=== PATIENT | female | born 1960 | race Caucasian/White ===

== ENCOUNTER 2018-05-02 14:17 | Outpatient (CLI) | payer BC ==
[2018-05-02 14:33] LABS: HGB - HEMOGLOBIN 13.5 g/dL (12.0-16.0); MEAN CORPUSCULAR HEMOGLOBIN 32.2 pg (27.0-31.0); MEAN CORPUSCULAR HGB CONC 34.6 g/dL (32.0-36.0); MEAN CORPUSCULAR VOLUME 93.1 fL (81.0-99.0); MEAN PLATELET VOLUME 8.8 fL (7.9-10.8); RED BLOOD COUNT 4.21 10^6/uL (4.20-5.40); RED CELL DISTRIBUTION WIDTH 14.1 % (12.0-15.0); WHITE BLOOD COUNT 6.2 x10^3/uL (4.8-10.8)
[2018-05-02 15:02] LABS: CALCIUM 9.3 mg/dL (8.5-10.3); CREATININE 1.5 mg/dL (0.4-1.0)
[2018-05-02 15:11] LABS: CREATININE,URINE 62.5 mg/dL
[2018-05-02 15:13] LABS: TOTAL PROTEIN,URINE TIMED < 6 mg/dL
== END 2018-05-02 14:18 | disposition home or self-care (01) ==
LOC: LAB 14:17
PROVIDERS: ATTEND Internal Medicine Nephrology
DX: N05.9 Unspecified nephritic syndrome with unspecified morphologic changes (principal); D70.9 Neutropenia, unspecified; D63.1 Anemia in chronic kidney disease; R80.9 Proteinuria, unspecified
CPT/HCPCS: 36415; 80048; 82570; 84156; 85027

== ENCOUNTER 2018-06-02 17:36 | Outpatient (CLI) | payer BC ==
--- NOTE | 2018-06-05 11:23 | Ultrasound Report ---
Reason: STAGE 3 KIDNEY DISEASE Procedure Date: 06/02/2018 Accession Number: [id number] / [id number] Procedure: US - Retroperitoneal CPT Code: FULL RESULT: EXAM: RENAL ULTRASOUND EXAM DATE: 06/02/2018 06:21 PM. CLINICAL HISTORY: Stage 3 kidney disease. COMPARISON: None. TECHNIQUE: Real-time scanning was performed with static images obtained. FINDINGS: Right Kidney: 8.5 cm. Decreased cortical thickness and increased echogenicity with no stones, contour-deforming masses, or hydronephrosis. Left Kidney: 10.1 cm. Decreased cortical thickness and increased echogenicity with no stones, contour-deforming masses, or hydronephrosis. Bladder: Bilateral jets seen. The prevoid bladder volume was 408 cc. The postvoid bladder volume was 26 cc. Other: None. IMPRESSION: Decreased cortical thickness and increased cortical echogenicity are compatible with medical renal disease. No obstruction. RADIA
== END 2018-06-02 17:37 | disposition home or self-care (01) ==
LOC: DI 17:36
PROVIDERS: ATTEND Internal Medicine Nephrology
DX: N18.3 Chronic kidney disease, stage 3 (moderate) (principal)
CPT/HCPCS: 76770

== ENCOUNTER 2018-10-05 22:54 | Emergency (ER) | payer BC ==
[2018-10-05 23:03] VITALS: BP 139/96
[2018-10-05 23:20] LABS: BILIRUBIN,URINE NEGATIVE (NEGATIVE); GLUCOSE, URINE (UA) NEGATIVE (NEGATIVE); KETONES,URINE (UA) NEGATIVE (NEGATIVE); LEUKOCYTE ESTERASE, URINE SMALL (NEGATIVE); NITRITE,URINE NEGATIVE (NEGATIVE); OCCULT BLOOD,URINE LARGE (NEGATIVE); PROTEIN,URINE 100 mg/dL (NEGATIVE); UROBILINOGEN,URINE 0.2 (NORMAL) E.U./dL (NORMAL)
[2018-10-05 23:24] LABS: CLARITY,URINE HAZY (CLEAR)
[2018-10-05 23:30] LABS: BACTERIA,URINE Rare /HPF (None Seen); RBC,URINE TNTC /HPF (0-5); SQUAMOUS EPITHELIAL CELL,UR FEW Squamous (<= Few)
--- NOTE | 2018-10-06 00:01 | ED Physician Documentation ---
PD HPI FEMALE - Stated complaint Stated Complaint: ABD PX/BK BX - Chief complaint Chief Complaint: UTI - History obtained from History obtained from: Patient - History of Present Illness Timing - onset: Enter time (11:00), Today Timing - details: Gradual onset Associated symptoms: Back pain, Dysuria, Urinary frequency. No: Fever Contributing factors: No: Similar symptoms before: Diagnosis (similar to previous UTIs) Recently seen: Not recently seen Review of Systems Constitutional: reports: Chills, Sweats, Other (did not take temp. 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 - Present Medications Home Medications: Ambulatory Orders Medication Instructions Recorded Confirmed Nitrofurantoin Monohyd/M-Cryst 100 mg PO BID #14 capsule 10/06/18 [Macrobid 100 mg Capsule] Phenazopyridine HCl [Pyridium] 200 mg PO TID PRN #6 tablet 10/06/18 - Allergies Allergies/Adverse Reactions: Allergies Allergy/AdvReac Type Severity Reaction Status Date / Time codeine AdvReac Unknown Verified 10/05/18 23:03 morphine AdvReac Unknown Verified 10/05/18 23:03 - Social History Does the pt smoke?: No Smoking Status: Never smoker Does the pt drink ETOH?: No Does the pt have substance abuse?: No PD ED PE NORMAL - Vitals Vital signs reviewed: Yes - General General: Alert and oriented X 3, No acute distress, Well developed/nourished - Abdomen Abdomen: Soft, Non tender - Back Back: No CVA TTP Results - Vitals Vitals: Vital Signs - 24 hr 10/05/18 22:59 Temperature 36.3 C L Heart Rate 80 Respiratory 16 Rate Blood Pressure 139/96 H O2 Saturation 96 Oxygen O2 Source Room air - Labs Labs: Microbiology 10/05/18 23:11 Urine Culture - Preliminary Urine,Catheterized CULTURE IN PROGRESS. RESULTS TO FOLLOW. Laboratory Tests 10/05/18 23:11 Urine Color YELLOW Urine Clarity HAZY Urine pH 6.0 Ur Specific [place] <=1.005 Urine Protein 100 H Urine Glucose (UA) NEGATIVE Urine Ketones NEGATIVE Urine Occult Blood LARGE H Urine Nitrite NEGATIVE Urine Bilirubin NEGATIVE Urine Urobilinogen 0.2 (NORMAL) Ur Leukocyte Esterase SMALL H Urine RBC TNTC H Urine WBC 11-25 H Ur Squamous Epith Cells FEW Squamous Urine Bacteria Rare Ur Microscopic Review INDICATED Urine Culture Comments INDICATED PD MEDICAL DECISION MAKING - ED course Complexity details: reviewed results, re-evaluated patient, considered differential, d/w patient Departure - Departure Disposition: Home, Self Care Clinical Impression: Urinary tract infection Condition: Good Instructions: ED UTI Cystitis Female Follow-Up: AUTUMN HUYNH DO [Primary Care Provider] - (3-4 days if symptoms persist) Prescriptions: Nitrofurantoin Monohyd/M-Cryst [Macrobid 100 mg Capsule] 100 mg PO BID #14 capsule Phenazopyridine HCl [Pyridium] 200 mg PO TID PRN #6 tablet PRN Reason: dysuria Discharge Date/Time: 10/06/18 00:26
[2018-10-06] MEDS ORDERED: PHENAZOPYRIDINE 100 MG TABLET PO STA (00:18)
[2018-10-06] MEDS ORDERED: NITROFURANTOIN MACRO 100 MG CAPSULE PO STA (00:18)
== END 2018-10-06 00:26 | disposition home or self-care (01) ==
LOC: ED 22:54
DX: N39.0 Urinary tract infection, site not specified (principal); I12.9 Hypertensive chronic kidney disease with stage 1 through stage 4 chronic kidney disease, or unspecified chronic kidney disease; N18.3 Chronic kidney disease, stage 3 (moderate); E78.00 Pure hypercholesterolemia, unspecified; E03.9 Hypothyroidism, unspecified
CPT/HCPCS: 81001; 87086; 99283; A9270; 81003

== ENCOUNTER 2018-11-15 22:19 | Emergency (ER) | payer BC ==
[2018-11-15 22:32] VITALS: BP 137/95
[2018-11-15] MEDS ORDERED: BUFFERED LIDOCAINE 10 ML SYRINGE SUBQ STA (22:39)
[2018-11-15] MEDS ORDERED: TETANUS/DIPHTHERIA/PERTUSSIS 0.5 ML SYRINGE IM ONE (22:40)
--- NOTE | 2018-11-15 22:41 | ED Physician Documentation ---
PD HPI UPPER EXT INJURY - Stated complaint Stated Complaint: LT FING LAC/INJ - Chief complaint Chief Complaint: Laceration - History obtained from History obtained from: Patient - History of Present Illness Location: Left (She cut her left index finger with a knife while cutting fruit at home just prior to arrival. 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 - Present Medications Home Medications: Ambulatory Orders Medication Instructions Recorded Confirmed Nitrofurantoin Monohyd/M-Cryst 100 mg PO BID #14 capsule 10/06/18 [Macrobid 100 mg Capsule] Phenazopyridine HCl [Pyridium] 200 mg PO TID PRN #6 tablet 10/06/18 - Allergies Allergies/Adverse Reactions: Allergies Allergy/AdvReac Type Severity Reaction Status Date / Time codeine AdvReac Unknown Verified 10/05/18 23:03 morphine AdvReac Unknown Verified 10/05/18 23:03 - Social History Does the pt smoke?: No Smoking Status: Never smoker Does the pt drink ETOH?: No Does the pt have substance abuse?: No PD ED PE NORMAL - Vitals Vital signs reviewed: Yes - General General: Alert and oriented X 3, No acute distress - Extremities Extremities: Other (On the left index finger on the radial side on the pulp there is a less than 1 cm laceration without Nail or nailbed involvement. No distal neurovascular compromise.) - Neuro Neuro: Alert and oriented X 3, Normal speech Results - Vitals Vitals: Vital Signs - 24 hr 11/15/18 22:28 Temperature 36.6 C Heart Rate 81 Respiratory 16 Rate Blood Pressure 137/95 H O2 Saturation 96 Oxygen O2 Source Room air Procedures - Laceration (location) L 2nd finger Length in cm: 0.5 Wound type: Linear, Into subcut fat Neurovascular status: Sensory intact, Motor intact, Vascular intact Anesthesia: Lidocaine 1% Wound Preparation: Irrigated copiously NS Skin layer closure: Nylon, Interrupted, Size #-0 - enter number (5-0), Sutures - enter # (1) Other: Patient tolerated well, No complications, Neurovascular intact, Tetanus booster given Departure - Departure Disposition: 01 Home, Self Care Clinical Impression: Laceration Condition: Good Record reviewed to determine appropriate education?: Yes Instructions: ED Laceration Hand Comments: Come back for any signs of infection which would include: Redness, swelling, drainage, increased pain, or fevers. You can wash it soap and water. Keep it covered and moist with bacitracin ointment which is available over the counter; avoid neosporin. Follow-up with your physician in about 14 days for suture removal. Your blood pressure was elevated today on check into the emergency department. This does not mean that you have hypertension, it is a common phenomenon to come to the emergency department and have elevated blood pressure. I recommend that you see your primary care physician within the week to have it rechecked when you are feeling better.
== END 2018-11-15 23:07 | disposition home or self-care (01) ==
LOC: ED 22:19
DX: S61.211A Laceration without foreign body of left index finger without damage to nail, initial encounter (principal); W26.0XXA Contact with knife, initial encounter; Y93.G1 Activity, food preparation and clean up; Y92.009 Unspecified place in unspecified non-institutional (private) residence as the place of occurrence of the external cause; I10 Essential (primary) hypertension
CPT/HCPCS: 12001; 90471; 99282; 99283

== ENCOUNTER 2018-11-18 13:24 | Emergency (ER) | payer BC ==
[2018-11-18] MEDS ORDERED: IBUPROFEN 600 MG TABLET PO STA (13:53)
[2018-11-18] MEDS ORDERED: ACETAMINOPHEN 325 MG TABLET PO STA (13:53)
--- NOTE | 2018-11-18 14:03 | ED Physician Documentation ---
PD HPI ABD PAIN - Stated complaint Stated Complaint: LT SIDE ABD/BACK PAIN - Chief complaint Chief Complaint: Abd Pain - History obtained from History obtained from: Patient - History of Present Illness Timing - onset: Other (She is had waxing and waning left mid abdominal pain for the last 7 days. It does not change with eating. There is no nausea. No urinary complaints. She was seen at an urgent care and a CT was done with contrast which per her showed an excessive stool load but no other acute findings. She was treated with MiraLAX and now has watery stools but no improvement in the pain. She is not taking anything for the pain. She has a history of appendectomy, hysterectomy and oophorectomy. Last colonoscopy was 5 years ago and negative per her, she does not remember a mention of diverticulitis. She does have a history of chronic kidney disease with a baseline creatinine of about 1.5.) Review of Systems Ten Systems: 10 systems reviewed and negative Constitutional: denies: Fever, Chills Throat: reports: Reviewed and negative Cardiac: reports: Reviewed and negative. denies: Chest pain / pressure, Palpitations Respiratory: denies: Dyspnea, Cough GI: reports: Abdominal Pain. 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 - Present Medications Home Medications: Ambulatory Orders Medication Instructions Recorded Confirmed Bupropion HCl [Wellbutrin Xl] 300 mg 11/15/18 Quetiapine Fumarate [Seroquel] 200 mg PO 11/15/18 RX: Levothyroxine Sodium 37.5 mg 11/15/18 RX: Lisinopril 2.5 mg PO 11/15/18 RX: Simvastatin 40 mg PO 11/15/18 Oxycodone HCl/Acetaminophen 1 - 2 each PO Q6H PRN #14 tablet 11/18/18 [Percocet 5-325 mg Tablet] - Allergies Allergies/Adverse Reactions: Allergies Allergy/AdvReac Type Severity Reaction Status Date / Time codeine AdvReac Unknown Verified 11/15/18 23:01 morphine AdvReac Unknown Verified 11/18/18 13:30 - Social History Does the pt smoke?: No Smoking Status: Never smoker Does the pt drink ETOH?: No Does the pt have substance abuse?: No - Immunizations Immunizations are current?: Yes - POLST Patient has POLST: No PD ED PE NORMAL - Vitals Vital signs reviewed: Yes - General General: Alert and oriented X 3, No acute distress - Cardiac Cardiac: RRR, No murmur - Respiratory Respiratory: No respiratory distress, Clear bilaterally - Abdomen Abdomen: Normal bowel sounds, Soft, Other (Tenderness in the left mid lower abdomen without surgical signs) - Back Back: No CVA TTP, No spinal TTP - Derm Derm: Normal color, Warm and dry - Extremities Extremities: No edema, No calf tenderness / cord - Neuro Neuro: Alert and oriented X 3, Normal speech - Psych Psych: Normal mood, Normal affect Results - Vitals Vitals: Vital Signs - 24 hr 11/18/18 11/18/18 13:28 15:35 Temperature 36.1 C L 36.5 C Heart Rate 81 64 Respiratory 20 20 Rate Blood Pressure 125/78 124/85 H O2 Saturation 97 96 Oxygen O2 Source Room air - Labs Labs: Laboratory Tests 11/18/18 11/18/18 11/18/18 14:15 14:15 14:26 WBC 5.6 RBC 4.16 L Hgb 13.0 Hct 38.4 MCV 92.3 MCH 31.4 H MCHC 34.0 RDW 13.6 Plt Count 154 MPV 9.1 Neut # (Auto) 3.5 Lymph # (Auto) 1.5 Faulk # (Auto) 0.5 Eos # (Auto) 0.1 Baso # (Auto) 0.1 Absolute Nucleated RBC 0.00 Nucleated RBC % 0.0 Sodium 139 Potassium 4.3 Chloride 104 Carbon Dioxide 25 Anion Gap 10.0 BUN 17 Creatinine 1.4 H Estimated GFR (MDRD) 39 L Glucose 87 Calcium 9.2 Total Bilirubin 0.7 AST 30 ALT 44 Alkaline Phosphatase 117 Total Protein 7.3 Albumin 4.1 Globulin 3.2 Albumin/Globulin Ratio 1.3 Lipase 43 Urine Color YELLOW Urine Clarity HAZY Urine pH 6.0 Ur Specific [place] <=1.005 Urine Protein NEGATIVE Urine Glucose (UA) NEGATIVE Urine Ketones NEGATIVE Urine Occult Blood NEGATIVE Urine Nitrite NEGATIVE Urine Bilirubin NEGATIVE Urine Urobilinogen 0.2 (NORMAL) Ur Leukocyte Esterase SMALL H Urine RBC None Seen Urine WBC 6-10 H Ur Squamous Epith Cells MOD Squamous H Urine Bacteria Rare Ur Microscopic Review INDICATED Urine Culture Comments NOT INDICATED - Rads (name of study) CT A/P Radiology: EMP read contemporaneously (Dilated CBD 1.5cm, otherwise ANAD) PD MEDICAL DECISION MAKING - ED course ED course: 58-year-old woman with nonspecific left mid abdominal pain, recent negative work-up and this was repeated without pertinent positive findings tonight. The dilated common bile duct was discussed with her, but would not explain the location of her pain. Departure - Departure Disposition: 01 Home, Self Care Clinical Impression: Abdominal pain, Bile duct, common, cystic dilatation Condition: Good Record reviewed to determine appropriate education?: Yes Instructions: ED Abdominal Pain Unkn Cause Prescriptions: Oxycodone HCl/Acetaminophen [Percocet 5-325 mg Tablet] 1 - 2 each PO Q6H PRN #14 tablet PRN Reason: pain Comments: As discussed, your common bile duct is dilated which is a common finding after you have had your gallbladder out, but the amount of dilation seems excessive for that situation. That should not cause left lower quadrant pain where you are feeling your pain though so I suspect it is unrelated, that would cause either upper central abdominal or right upper quadrant pain. He should follow- up with your primary care physician for further evaluation and treatment of your current pain as well as the common bile duct dilatation. Return for new or worsening symptoms. Do not drink or drive while taking narcotic pain medication. Note that many narcotic pain relievers also contain Tylenol/acetaminophen. Please ensure that your total dose of acetaminophen from all sources does not exceed 3 g (3000 mg) per day. You may get constipated while on this medication. Take a stool softener such as Colace twice a day while you are on it. Also add an [id number] laxative such as senna or MiraLAX on any day that you do not have a bowel movement. If you received a narcotic pain medication or sedative while in the emergency department, do not drive for the next 24 hours. Discharge Date/Time: 11/18/18 15:37
[2018-11-18 14:24] LABS: BASOPHILS # (AUTO) 0.1 10^3/uL (0.0-0.1); BASOPHILS % (AUTO) 1.1 %; EOSINOPHILS # (AUTO) 0.1 10^3/uL (0.0-0.7); EOSINOPHILS % (AUTO) 1.2 %; LYMPHOCYTES # (AUTO) 1.5 10^3/uL (1.5-3.5); LYMPHOCYTES % (AUTO) 27.4 %; MEAN CORPUSCULAR HEMOGLOBIN 31.4 pg (27.0-31.0); MEAN CORPUSCULAR VOLUME 92.3 fL (81.0-99.0); MEAN PLATELET VOLUME 9.1 fL (7.9-10.8); MONOCYTES # (AUTO) 0.5 10^3/uL (0.0-1.0); MONOCYTES % (AUTO) 8.1 %; NEUTROPHILS # (AUTO) 3.5 10^3/uL (1.5-6.6); NEUTROPHILS % (AUTO) 62.2 %; PLT - PLATELET COUNT 154 10^3/uL (130-450); RED BLOOD COUNT 4.16 10^6/uL (4.20-5.40); RED CELL DISTRIBUTION WIDTH 13.6 % (12.0-15.0); WHITE BLOOD COUNT 5.6 x10^3/uL (4.8-10.8)
[2018-11-18 14:32] LABS: BILIRUBIN,URINE NEGATIVE (NEGATIVE); CLARITY,URINE HAZY (CLEAR); GLUCOSE, URINE (UA) NEGATIVE (NEGATIVE); KETONES,URINE (UA) NEGATIVE (NEGATIVE); LEUKOCYTE ESTERASE, URINE SMALL (NEGATIVE); NITRITE,URINE NEGATIVE (NEGATIVE); OCCULT BLOOD,URINE NEGATIVE (NEGATIVE); PROTEIN,URINE NEGATIVE (NEGATIVE); UROBILINOGEN,URINE 0.2 (NORMAL) E.U./dL (NORMAL)
[2018-11-18 14:36] LABS: BACTERIA,URINE Rare /HPF (None Seen); RBC,URINE None Seen /HPF (0-5); SQUAMOUS EPITHELIAL CELL,UR MOD Squamous (<= Few)
[2018-11-18 14:36] LABS: ALBUMIN 4.1 g/dL (3.2-5.5); ALBUMIN/GLOBULIN RATIO 1.3 (1.0-2.2); BILIRUBIN,TOTAL 0.7 mg/dL (0.2-1.0); CALCIUM 9.2 mg/dL (8.5-10.3); CREATININE 1.4 mg/dL (0.4-1.0); TOTAL PROTEIN 7.3 g/dL (6.7-8.2)
--- NOTE | 2018-11-18 15:14 | CT Report ---
Reason: LLQ pain Procedure Date: 11/18/2018 Accession Number: [id number] / [id number] Procedure: CT - Abdomen/Pelvis WO CPT Code: FULL RESULT: EXAM: CT ABDOMEN AND PELVIS (CT KUB) EXAM DATE: 11/18/2018 02:32 PM. CLINICAL HISTORY: LLQ pain. COMPARISONS: Limited correlation made with RETROPERITONEAL ultrasound 06/02/2018 6:00 PM. TECHNIQUE: Routine axial helical CT imaging was performed through the abdomen and pelvis without IV contrast. Reconstructions: Coronal and sagittal. In accordance with CT protocol optimization, one or more of the following dose reduction techniques were utilized for this exam: automated exposure control, adjustment of mA and/or KV based on patient size, or use of iterative reconstructive technique. FINDINGS: Lung Bases: Mild bibasilar linear atelectasis and/or scarring. Minimal right pleural effusion. Normal heart size. No pericardial effusion. Right Kidney/Ureter: Mild cortical atrophy. No hydronephrosis, or hydroureter. Nonobstructing 1 mm stone at the interpolar region. No perinephric fat stranding. Left Kidney/Ureter: Mild cortical atrophy. No stones, hydronephrosis, or hydroureter. No perinephric fat stranding. Other Solid Organs: Noncontrast images of the solid organs are grossly unremarkable. Gallbladder/Bile Ducts: Prior cholecystectomy. The common bile duct measures up to 1.5 cm in diameter and tapers normally distally. No definite obstructing lesion identified. Peritoneal Cavity: No free fluid, free air or dimitry adenopathy. Bowel is grossly unremarkable. Moderate colonic stool burden. Mild focal gaseous distention of the redundant sigmoid colon. Surgical clips right lower quadrant. Pelvic Organs: No bladder stones or wall thickening. Prior hysterectomy. Vasculature: Unremarkable. Other: None. IMPRESSION: 1. Dilatation of the common bile duct up to 1.5 cm without obstructing lesion identified, greater than expected allowing for postcholecystectomy state. If there is clinical and/or laboratory evidence of biliary obstruction, recommend further evaluation with MRCP. 2. Otherwise no acute abnormality on noncontrast abdomen and pelvis CT. RADIA
[2018-11-18 15:37] VITALS: BP 124/85
== END 2018-11-18 15:37 | disposition home or self-care (01) ==
LOC: ED 13:24
DX: R10.32 Left lower quadrant pain (principal); K83.8 Other specified diseases of biliary tract; Z90.49 Acquired absence of other specified parts of digestive tract; I12.9 Hypertensive chronic kidney disease with stage 1 through stage 4 chronic kidney disease, or unspecified chronic kidney disease; N18.9 Chronic kidney disease, unspecified
CPT/HCPCS: 74176; 80053; 81001; 83690; 85025; 99283; A9270; 81003; 87086